=== PATIENT | female | born 1980 | race Caucasian/White ===

== ENCOUNTER 2017-03-19 08:38 | Day surgery (SDC) | payer OTHER ==
[2017-03-17 12:31] VITALS: BMI 22.3
[2017-03-19] MEDS ORDERED: Lidocaine 1%/Epinephrine 1:100000 30 ml vial IJ ONE (09:32)
[2017-03-19] MEDS ORDERED: ceFAZolin IV 2 gm in Dextrose 2 GM/50 ML BAG IVPB ONE (10:49)
[2017-03-19] MEDS ORDERED: Bupivacaine HCl 0.25% PF (10 ml) Inj ONE (11:02)
[2017-03-19] MEDS ORDERED: Bupivacaine-Epi 0.25%-1:200,000 PF Inj IJ ONE (11:04)
[2017-03-19] MEDS ORDERED: Lactated Ringer's 1,000 ML IV ONE (11:12)
[2017-03-19] MEDS ORDERED: Propofol 10 mg/ml Inj (20 ML) ONE (11:14)
[2017-03-19] MEDS ORDERED: Midazolam 2 MG/2 ML VIAL ONE (11:15)
[2017-03-19] MEDS ORDERED: Bupivacaine HCl 0.5% PF (10 ml) Inj IJ ONE (11:16)
[2017-03-19] MEDS ORDERED: Rocuronium 10 mg/ml (5 ml) ONE ×2 (11:16→12:13)
[2017-03-19] MEDS ORDERED: Succinylcholine Chloride 20 mg/ml Syr (5 ml) IV ONE (11:16)
[2017-03-19] MEDS ORDERED: Neostigmine Methylsulfate 3mg/3ml Syringe IV ONE (12:41)
[2017-03-19] MEDS ORDERED: Morphine 4 MG/ML VIAL ONE (12:56)
[2017-03-19] MEDS ORDERED: Sodium Chloride 0.9% 1,000 ML IV ONE (12:58)
[2017-03-19] MEDS ORDERED: Oxycodone/Acetaminophen 5/325 mg Tab PO PRN (13:03)
--- NOTE | 2017-03-19 13:07 | PCM.SURG1 ---
Surgeon's Initial Post Op Note - Surgeon's Notes Surgeon: Dr. Ramsey Copier Operator: Dr. Roberts PGY2, Zoey GONZALESA Type of Anesthesia: General Endo Pre-Operative Diagnosis: anal fissure, external hemorrhoids Operative Findings: see dictation Post-Operative Diagnosis: same Operation Performed: excision of sentinel pile, anal fissurectomy, internal sphincterotomy, hemorrhoidectomy, mucosal advancement flap Specimen/Specimens Removed: sentinel pile, hemorrhoids Estimated Blood Loss: EBL {In ML}: 50 Drains Used: No Drains Date of Surgery/Procedure: 03/19/17 Time of Surgery/Procedure: 11:15
[2017-03-19 14:46] VITALS: BP 97/63; PULSE 108; RESP 26; TEMP 98.1; O2SAT 98
--- NOTE | 2017-03-22 03:19 | OP ---
PROCEDURE DATE: 03/19/2017 PREOPERATIVE DIAGNOSES: 1. Severe anal pain. 2. Chronic anal fissure. 3. Hemorrhoid. 4. Chronic constipation. POSTOPERATIVE DIAGNOSES: 1. Severe anal pain. 2. Chronic anal fissure. 3. Hemorrhoid. 4. Chronic constipation. PROCEDURES DONE: 1. Examination under anesthesia. 2. Two-column hemorrhoidectomy. 3. Internal sphincterotomy. 4. Fissurectomy. 5. Mucosal advancement flap closure. 6. Kal[place] pile excision. SURGEON: Oscar Ramsey MD. ACCOUNTING MANAGER: Gisela Roberts, PGY-2 resident and JON Rodriguez. TYPE OF ANESTHESIA: General endotracheal tube anesthesia. ESTIMATED BLOOD LOSS: Around 50 mL. DRAINS: None. PATHOLOGY: 1. The two column of the lateral side large hemorrhoid was sent for the pathology. 2. A sentinel pile. INTRAOPERATIVE FINDINGS: The patient had posterior large chronic anal fissure of approximately 2 x 4 cm size and the patient had a sentinel pile. Patient also had large grade III hemorrhoid of the lateral left side and the patient also had grade II hemorrhoid of right anterior. DESCRIPTION OF PROCEDURE: On intraoperative steps, this 36-year-old female, who was diagnosed with a chronic anal fissure with hemorrhoid and the patient was consented for the anal fissurectomy, internal sphincterotomy, and hemorrhoidectomy, brought to the OR, placed supine on the stretcher. After induction of the anesthesia, patient was placed in prone jackknife position. The butt cheek was . The perineal area was prepped and draped and examination under anesthesia was done. Patient found to have chronic anal fissure, sentinel pile. The patient also found to have lateral grade III hemorrhoid and grade II hemorrhoid on the right anterior and patient had all the symptoms due to the chronic anal fissure. Now, the elliptical incision was made surrounding the lateral hemorrhoid and the mucocutaneous junction incision was made. Incision was deepened down into the hemorrhoid and internal sphincter avascular plane and dissection was carried down up to the left lateral large hemorrhoid and hemorrhoid pedicle was ligated and now the anal fissure was debrided. The sentinel pile was also excised and it was sent to the table for the pathology. The surrounding mucosa of the anal fissure was debrided. After proper hemostasis, the mucosa from the internal sphincter was all the way deep into the rectum to bring the mucosa up for mucosal advancement flap and now the mucosa was sutured starting from the pedicle up to the surrounding mucosal edges and closure was brought up to the anal canal and mucocutaneous junction was sutured with continuous as well as interrupted 2-0 Vicryl suture. After proper flap closure and after proper hemostasis, the surgical sponge was placed as a packing and sterile dressing was applied. Patient tolerated the procedure well. Count of the instrument and gauze was correct. There were no apparent complication. Patient was extubated in the OR and sent to the Post-Anesthesia Care Unit in stable condition. Oscar Ramsey MD
== END 2017-03-19 14:58 | disposition home or self-care (01) ==
LOC: C.SDS 08:38
PROVIDERS: ATTEND Surgery Surgical Critical Care
DX: K64.2 Third degree hemorrhoids (principal); K60.2 Anal fissure, unspecified; K64.4 Residual hemorrhoidal skin tags
CPT/HCPCS: 46200; 46261; 46999; 88304; 88305; J0131; J0690; J1170; J1885; J2001; J2250; J2270; J2405; J2704; J2710; J3010; J7040; J7120